=== PATIENT | female | born 1985 | race Caucasian/White ===

== ENCOUNTER 2018-11-26 22:26 | Emergency (ER) | payer OTHER ==
[~2018-11-26] VITALS: Ht 162.6 cm; Wt 70.3 kg
[2018-11-26 22:52] VITALS: Ht 162.6 cm; Wt 70.3 kg
[2018-11-26 23:57] LABS: RED CELL DISTRIBUTION WIDTH 13.9 % (11.5-14.5)
[2018-11-26 23:59] LABS: BASOPHIL % 0 % (0-2)
[2018-11-27 00:03] LABS: PLATELET COUNT 572 x10^3mcL (130-400)
[2018-11-27 00:08] LABS: ALKALINE PHOSPHATASE 83 U/L (46-116); ALT/SGPT 18 U/L (14-59); AST/SGOT 21 U/L (15-37); BILIRUBIN TOTAL 0.7 mg/dL (0.20-1.00); CALCIUM 8.3 mg/dL (8.5-10.1); CARBON DIOXIDE 28.9 mmol/L (21-32); CHLORIDE SERUM 102 mmol/L (98-107); CREATININE SERUM 0.5 mg/dL (0.6-1.0); GFR1 > 60 mL/min; GLUCOSE SERUM 102 mg/dL (74-106); LIPASE 33 IU/L (73-393); SODIUM SERUM 138 mmol/L (136-145); TOTAL PROTEIN, SERUM 8.1 g/dL (6.4-8.2)
[2018-11-27 00:16] LABS: ALBUMIN 3.3 g/dL (3.4-5.0)
[2018-11-27 00:17] LABS: POTASSIUM SERUM 2.9 mmol/L (3.5-5.1)
[2018-11-27 02:26] VITALS: BP 109/71
== END 2018-11-27 02:26 | disposition home or self-care (01) ==
LOC: ED 22:26
PROVIDERS: Emergency Medicine
DX: E86.0 Dehydration (principal); E87.6 Hypokalemia; B34.9 Viral infection, unspecified
CPT/HCPCS: 87804; J1885; J2405; J3480; J7030; Q0092